=== PATIENT | male | born 1975 | race Caucasian/White ===

== ENCOUNTER → 2019-03-09 08:52 | Outpatient (CLI) | payer OTHER, SELFPAY ==
[2019-03-09 10:20] LABS: Hepatitis B Surface Antigen NEGATIVE s/c (NEGATIVE)
[2019-03-09 10:38] LABS: HIV 1 & 2 Ab/Ag 4th Gen Combo NEGATIVE (NEGATIVE); Hep C Virus Ab w/Reflex Quant NEGATIVE s/c (NEGATIVE)
[2019-03-09 11:06] LABS: Urine N gonorrhoeae NOT DETECTED
[2019-03-09 11:10] LABS: Urine Chlamydia NOT DETECTED
[2019-03-11 20:31] LABS: RPR Screen Nonreactive (Nonreactive)
== END ==
PROVIDERS: PCP Family Medicine; Visit Provider Physician Assistant
DX: Z11.3 Encounter for screening for infections with a predominantly sexual mode of transmission (principal)
CPT/HCPCS: 36415; 86592; 86803; 87340; 87389; 87491; 87591